=== PATIENT | male | born 1965 | race American Indian/Alaskan Native ===

== ENCOUNTER 2017-02-19 04:20 | Emergency (ER) | payer SELFPAY ==
[2017-02-19] MEDS ORDERED: NORCO 5/325 ONE (04:49)
[2017-02-19] MEDS ORDERED: NORCO 5/325 PO ONE (04:50)
[2017-02-19 04:54] VITALS: BP 143/103
--- NOTE | 2017-02-19 05:25 | XRay Report ---
FINAL REPORT PROCEDURE: XR KNEE 1-2V LT TECHNIQUE: LEFT knee radiographs, AP, lateral and sunrise views. CPT 90831 HISTORY: LEFT KNEE PAIN COMPARISON: No prior studies are available for comparison. FINDINGS: Fracture (s) and/or Dislocation(s): None . Alignment: Normal . Joint space(s): Normal . Soft tissues: Normal . Bone mineralization: Normal . Foreign bodies: None . IMPRESSION: Normal Examination.
[2017-02-19] MEDS ORDERED: BOOSTRIX IM ONE (06:53)
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
== END 2017-02-19 07:15 | disposition home or self-care (01) ==
LOC: ED 04:20
DX: S80.212A Abrasion, left knee, initial encounter (principal); S80.211A Abrasion, right knee, initial encounter; Y08.89XA Assault by other specified means, initial encounter; Y93.89 Activity, other specified; Y99.8 Other external cause status; Y92.89 Other specified places as the place of occurrence of the external cause; I10 Essential (primary) hypertension; F32.9 Major depressive disorder, single episode, unspecified; F17.200 Nicotine dependence, unspecified, uncomplicated; Z88.8 Allergy status to other drugs, medicaments and biological substances
CPT/HCPCS: 90715